=== PATIENT | male | born 1975 | race Caucasian/White ===

== ENCOUNTER 2020-07-16 11:43 | Emergency (ER) | payer OTHER, SELFPAY ==
--- NOTE | 2020-07-16 11:53 | ED.EYEPROB ---
HPI - Eye Problem General Chief complaint: Eye Problems Stated complaint: eye prob Time Seen by Provider: 07/16/20 11:53 Source: patient and RN notes reviewed History of Present Illness HPI Narrative: Patient is a 45-year-old male who presents the urgent care with complaints of pressure and pain to the left eye with redness and watery tearing. Patient states that it started yesterday when he woke up with some mild pressure in the eye and then woke up this morning with the redness and drainage. Patient states that he has had this in the past and they gave him drops it cleared it up . Patient denies of any known trauma, injury or foreign body. Denies of any headache or changes in vision. 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 No other acute complaints. No acute distress noted. Patient aware of the plan of care. Some parts of this dictation were generated by voice recognition software and may contain typographical and/or grammatical inaccuracies. Related Data Allergies Allergy/AdvReac Type Severity Reaction Status Date / Time bee venom protein (honey bee) Allergy Anaphylaxis Verified 07/16/20 12:05 [bees] Review of Systems Review of Systems: Narrative: CONSTITUTIONAL: Denies fever, chills, or sweats. EYES: Reports of clear drainage, redness and left eye pressure to the left eye ENT: Denies rhinorrhea, congestion, sore throat, or otalgia. CARDIOVASCULAR: Denies chest pain, palpitations, or edema. RESPIRATORY: Denies cough or dyspnea. GASTROINTESTINAL: Denies abdominal pain, nausea, vomiting, or diarrhea. GENITOURINARY: Denies dysuria or hematuria. SKIN: Denies rash or itching. MUSCULOSKELETAL: Denies back pain, joint pain, or myalgia. NEUROLOGIC: Denies headache, numbness, or weakness. All other systems reviewed are negative, except as documented in HPI. PMFSH Comments At the time of my signature, I reviewed and agree with the nursing past medical, surgical, social, and family history. There is no relevant family history pertinent to the patient complaint. Exam Narrative: Exam Narrative: GENERAL: This is a well-nourished, well-developed patient, in no apparent distress. HEAD: normocephalic, atraumatic. EYES: PERRL. Right sclera clear/white. Vision is grossly intact. Left sclera erythemic, injected left conjunctivea, moderate sensitivity to light on the left. No obvious left internal or external hordeolum. No left eye matting. Clear drainage from the left eye. EARS: External ears normal NOSE: External nose normal with no obvious nasal discharge, nares without redness, no rhinorrhea. THROAT: Mucous membranes moist NECK: Neck supple SKIN: warm, intact with no suspicious lesions or rash, good texture and turgor. NEURO: awake, alert, and oriented to person, place and time. There were no obvious focal neurologic abnormalities. EXTREMITIES: No clubbing, cyanosis, or edema. Course Vital Signs Vital signs: Vital Signs Temperature 97.9 F 07/16/20 11:55 Pulse Rate 62 07/16/20 11:55 Respiratory Rate 16 07/16/20 11:55 Blood Pressure 154/109 H 07/16/20 11:55 Pulse Oximetry 98 07/16/20 11:55 Temperature 97.9 F 07/16/20 12:05 Pulse Rate 62 07/16/20 12:05 Respiratory Rate 16 07/16/20 12:05 Blood Pressure 154/109 H 07/16/20 12:05 Pulse Oximetry 98 07/16/20 12:05 Reviewed?patient is informed that they may have pre-hypertension or hypertension based on a blood pressure reading in the department. I recommend the patient call the primary care provider listed on their discharge instructions or a physician of their choice this week to arrange follow-up for further evaluation of possible pre-hypertension or hypertension. Procedures Other Procedure Procedure 1: Other Procedure: Use normal saline eyewash to the left eye with 2 drops of numbing tetracaine. Patient tolerated well. Patient deferred staining but no foreign body noted to the naked eye. MDM - Eye Problem MDM Narrative Medical
[2020-07-16 11:55] VITALS: BP 154/109; PULSE 62; RESP 16; TEMP 36.6; O2SAT 98
[2020-07-16 12:05] VITALS: BP 154/109; PULSE 62; RESP 16; TEMP 36.6; O2SAT 98
== END 2020-07-16 12:30 | disposition home or self-care (01) ==
PROVIDERS: Emergency Provider Nurse Practitioner Family
DX: H10.9 Unspecified conjunctivitis (principal)
CPT/HCPCS: 99213; A9270; G0463